=== PATIENT | male | born 1960 | race Caucasian/White ===

== ENCOUNTER → 2016-08-24 | Outpatient (CLI) | payer BC ==
--- NOTE | 2016-08-25 19:43 | DI ---
LEFT FOOT, 08/24/2016 12:10 PM: Clinical History: Left foot pain. Previous Exam: None at this facility. 3 weightbearing views are submitted. There is no acute soft tissue, osseous, or joint abnormality. Andrew ne densities are present at the tip of the medial malleolus consistent with previous injury to the de ltoid ligament. There is an os trigonum. Bony spurs are present at the attachment of the Achilles ten don and the plantar fascia to the calcaneus. Reading: There are bone spurs at the attachment of the plantar fascia and Achilles tendon to the calcaneus.
== END ==
LOC: RAD 13:05
PROVIDERS: ATTEND Orthopaedic Surgery
DX: M79.672 Pain in left foot (principal); M77.32 Calcaneal spur, left foot
CPT/HCPCS: 73630

== ENCOUNTER 2017-02-06 17:44 | Inpatient (IN) ==
[2017-02-06] MEDS ORDERED: KETOROLAC 15 MG/1 ML VIAL IVP ONE (17:54)
[2017-02-06] MEDS ORDERED: ONDANSETRON 4 MG/2 ML VIAL IVP ONE (17:54)
[2017-02-06] MEDS ORDERED: Sodium Chloride 0.9% 1,000 ML PRIMARY IV ONE ×2 (17:54→21:58)
[2017-02-06] MEDS ORDERED: MORPHINE SULFATE 4 MG/1 ML IVP ONE ×2 (17:54→20:15)
--- NOTE | 2017-02-06 18:05 | PDOC ---
Abdomen/Flank HPI - General Chief Complaint: Abdomen Pain Stated Complaint: ABDOMINAL PAIN Date Seen by Provider: 02/06/17 Time Seen by Provider: 17:50 Source: POSITIVE: Patient, Spouse Exam Limitations: POSITIVE: No limitations Nurse's Notes Reviewed & Considered: Yes - History of Present Illness Initial Comments: This is a pleasant well-developed well-nourished 56-year-old male complaining of right upper quadrant and epigastric abdominal pain. Patient was in his normal state of health last night prior to consuming a hot dog at the ball game. He subsequently developed right upper quadrant and epigastric pain with nausea but no vomiting. He denies any headache, no sore throat, no fever chills or sweats, he does have nausea but no vomiting and no diarrhea. He denies any ataxia, no hematuria or dysuria. He does have some mild complaints of myalgias but denies any arthralgias. He has a mild cough but no shortness of breath and no chest pain. Body Location Affected: REPORTS: Abdomen Timing: REPORTS: Abrupt Duration: >24 hours Severity: Severe Quality: REPORTS: Cramping, "Pain", Throbbing Abdominal Pain Onset Location: REPORTS: RUQ, Epigastric Abdominal Pain Radiation: REPORTS: No radiation Context: REPORTS: Bad Food Modifying Factors: improves with: Nothing Associated Symptoms: REPORTS: Nausea Similar Symptoms Previously: No Recent Care Received: REPORTS: Denies Any Prior Injuries Related to Current Complaint?: No - Patient Home Medications Home Medications: Home Medications Ibuprofen 200 mg PO PRN 09/13/12 Albuterol/Ipratrop Neb Soln [Duoneb Neb Soln] 1 vial INH ONCE #1 04/10/16 Methylprednisolone [Medrol] 4 mg PO TAD #21 box 04/10/16 - Patient Allergies Allergies/Adverse Reactions: Allergies 3 Allergy/AdvReac Type Severity Reaction Status Date / Time oxycodone HCl [From Percocet] Allergy Intermediate SHORTNESS Verified 02/06/17 17:51 OF BREATH Penicillins Allergy Intermediate HIVES Verified 02/06/17 17:51 Past Medical History - heen HEENT History: Denies History Cardiovascular History: Denies History Respiratory History: Asthma, Snoring Additional Respiratory History: ACTIVITY INDUCED ASTHMA Gastrointestinal History: GERD Genitourinary History: Kidney Stones Additional Genitourinary History: HAS PASSED A COUPLE KIDNEY STONES. STATES THE LAST ONE WAS THE FIRST PART OF SUMMER. Endocrine History: Denies History Musculoskeletal History: Arthritis, Back Pain, Joint Pain Prosthesis or Implant: No Neurological History: Motion Sickness Blood Disorders: Denies History Psychiatric History: Denies History History of Sexually Transmitted Diseases: No Cancer History: Denies History History of MDRO: No History of Other Communicable Diseases: No Alcohol Use: None In the Past 12 Months, Have Used or Abuse Any Substance: None Previous Surgical History: Yes Type / Date of Surgery: BACK SX L4-5 (CLEAN UP) X 2/ CIRCUMCISION/ EGD Anesthesia Reactions: Yes (PONV/ LOW O2 AFTER PRIOR SX'S) Malignant Hyperthermia: No Significant Family History: Hypertension ROS - Limitations ROS Limitations: No Limitations Constitution: REPORTS: Denies Symptoms Cardiovascular: REPORTS: Denies Cardiac Symptoms Respiratory: REPORTS: Cough Non Productive Neurological: REPORTS: Denies Neuro Symptoms Gastrointestinal: REPORTS: Abdominal Pain, Nausea Endocrine: REPORTS: Denies Symptoms Musculoskeletal: REPORTS: Muscle Aches Genitourinary: REPORTS: Denies Symptoms Eyes: REPORTS: Denies Symptoms ENT: REPORTS: Denies Symptoms Skin: REPORTS: Denies Skin Symptoms Lympathic: REPORTS: Denies Lympathic Symptoms Immunologic: POSITIVE: Denies Symptoms Psychiatric: POSITIVE: Denies Psych Symptoms Abdominal/Flank Pain PE - General Appearance General Appearance: POSITIVE: Alert, Cooperative, No Evidence of Trauma, Moderate Distress - HEENT HEENT: POSITIVE: Head Inspection Nml, Eyes Inspection Nml, Ears Inspection Nml, Nose Inspection Nml, Oral/Dental Inspect. Nml, Pharynx Inspect. Nml, PERRL, EOMI - Neck Neck: POSITIVE: Normal Inspection, No Apparent Injury - Respiratory Respiratory: POSITIVE: No Respiratory Distress, Breath Sounds Normal, Chest Non- Tender - Cardiovascular Cardiovascular: POSITIVE: Regular Rate and Rhythm, Heart Sounds Normal, Strong Pulses Peripheral Pulses: Radial (L): 4+ - Chest Chest: POSITIVE: Non Tender - Abdomen Abdomen: Soft: (All Quadrants), Normal Bowel Sounds: (All Quadrants), Denies Tenderness: (RLQ), (LLQ), No Splenomegaly: (All Quadrants), No Hepatomegaly: ( All Quadrants), No Guarding: (RLQ), (LLQ), No Rebound: (All Quadrants), No Palpable Pulse: (All Quadrants), No Palpabale Mass: (All Quadrants), No Rigidity : (All Quadrants), Tenderness Noted: (RUQ), (LUQ), Distention: (All Quadrants), Guarding: (RUQ) - Back Back: POSITIVE: Normal Inspection - Skin Skin: POSITIVE: Intact, Normal For Race, Warm, Dry, No Rash - Extremities Extremity: Non-Tender: (All Extremities), Normal ROM: (All Extremities), Normal Inspection: (All Extremities), Pelvis Stable: (All Extremities) - Neurological Neurological: POSITIVE: Affect Apporpriate, Oriented X3, Motor Normal, Sensation Normal - Psychological Psychiatric: POSITIVE: Affect Appropriate, Mood Appropriate Abdomen Progress - Results Reviewed by me Xrays/CTs/US Reviewed by me: Yes Discussed with Radiologist: Yes Lab Results Reviewed by Me: Yes CBC and BMP: 02/06/17 18:23 02/06/17 18:23 - Patient's Progress Pain Medication Addressed: POSITIVE: Yes Re-examine Time: 21:46 Status: POSITIVE: Improved MDM / ED Course: The patient was examined, an IV started, blood drawn and sent to the lab for studies, radiographic examinations were obtained. Findings: CBC shows elevation of his white count to 14. Comprehensive metabolic panel is unremarkable. Amylase is elevated over 300. Lipase is 1714. CT scan of his abdomen shows no acute intra-abdominal abnormalities. Ultrasound, per my interpretation, shows increased echogenicity of pancreas, normal gallbladder, common bile duct was unobserved. Assessment: Acute pancreatitis. Plan: Admission, nothing by mouth, pain medication, possible surgical consultation - Consult Consult (If Yes, Name of Consulting MD & Time Called): Yes (Dr. Mitchell, 2130 hrs) Consulting MD will see pt:: POSITIVE: [facility] [place] Admit Counseled: POSITIVE: Patient, Family, RE: Lab Results, RE: Radiology Results, RE : DX Patient Care Time - Estimated PCT Patient Care Time (In Minutes): 45 Vital Signs - VS Reviewed Vital Signs Reviewed: Yes Discharge Clinical Impression: Abdominal pain, Pancreatitis Discharge Disposition: Admit to Inpatient Condition: Stable Patient Instructions Given at Discharge: Pancreatitis (ED) Follow Up With: SAMY REAL [Primary Care Provider] - Date Decision to Admit to Inpatient: 02/06/17 Time Decision to Admit to Inpatient: 21:49
[2017-02-06 18:27] LABS: BASOPHILS # (AUTO) 0.03 10*3/UL; BASOPHILS % (AUTO) 0.2 % (0-1); EOSINOPHILS # (AUTO) 0.38 10*3/UL; EOSINOPHILS % (AUTO) 2.6 % (0-8); Hematocrit [HCT] 49.5 % (42.0-52.0); Hemoglobin [HGB] 16.2 g/dL (14.0-18.0); MEAN CORPUSCULAR HEMOGLOBIN 30.5 PG (27-31); MEAN CORPUSCULAR HGB CONC 32.7 g/dL (33-37); MEAN PLATELET VOLUME 10.2 FL (7.4-12.2); MONOCYTES # (AUTO) 1.39 10*3/UL (0.3-0.8); MONOCYTES % (AUTO) 9.6 % (5-15); NEUTROPHILS # (AUTO) 11.18 10*3/UL; NEUTROPHILS % (AUTO) 77.1 % (50-80); RED BLOOD COUNT 5.32 10^6/uL (4.70-6.10)
[2017-02-06 18:28] LABS: PLATELET MORPHOLOGY COMMENT NORMAL MORPHOLOGY (NORM); RBC MORPHOLOGY COMMENT NORMAL MORPHOLOGY (NORM); WBC MORPHOLOGY COMMENT NORMAL MORPHOLOGY (NORM)
[2017-02-06 18:38] LABS: BLOOD UREA NITROGEN 11 mg/dL (7-22); BUN/CREATININE RATIO 18.33 (6-20); SERUM ALBUMIN 4.2 g/dL (3.5-4.8)
--- NOTE | 2017-02-06 19:26 | DI ---
CT Abdomen/Pelvis W Contrast,02/06/2017 5:54 PM: Clinical History: Right upper quadrant pain. Previous Exam: None at this facility. Findings: Multiple helically acquired CT images are obtained through the abdomen and pelvis following intraveno us administration of contrast. The appendix is normal. There is a small fat-containing umbilical hernia. There is no free fluid with in the deep pelvis. The urinary bladder is unremarkable. The spleen, pancreas, adrenals, kidneys and gallbladder are unremarkable. There is diffuse fatty infiltration of the liver. Degenerative changes are seen of the spine. There is some facet arthropathy noted. The anterior abdominal wall and subcutaneous fat is unremarkable. Impression: No acute intra-abdominal pathology.
[2017-02-06 19:57] LABS: BILIRUBIN,URINE NEGATIVE (NEG); CLARITY,URINE CLEAR (CLEAR); COLOR,URINE YELLOW (Y); GLUCOSE, URINE (UA) NEGATIVE (NEG); OCCULT BLOOD,URINE NEGATIVE (NEG); PH,URINE 5.5 (5.0-8.5); PROTEIN,URINE NEGATIVE (NEG); URINE SAMPLE TYPE VOIDED SPECIMEN
[2017-02-06] MEDS ORDERED: MORPHINE SULFATE 4 MG/1 ML ONE (20:17)
--- NOTE | 2017-02-06 21:28 | DI ---
EXAM: US Abdomen Complete CLINICAL HISTORY: Physician Notes: FOCUS ON [email or web address].Tech Comments: TECHNIQUE: Real-time ultrasound of the abdomen (complete) with image documentation. COMPARISON: No relevant prior studies available. FINDINGS: Limitations: Examination is limited due to patient body habitus. Liver: The liver demonstrates diffuse increased echogenicity, consistent with steatosis. No intrahepatic bile duct dilation. Gallbladder: Gallbladder demonstrates physiologic distention. No wall thickening. No visualized stones. Common bile duct: Common bile duct not definitively visualized. Pancreas: Very limited evaluation of the pancreas. A portion of the pancreatic head as visualized, with an increased echogenicity likely indicating fatty infiltration. Kidneys: Right kidney difficult to characterize, though size is grossly normal at 13 cm. No obvious hydronephrosis. Aorta: Aorta not visualized. Inferior vena cava: Unremarkable. IMPRESSION: 1. Hepatic steatosis. There is also likely fatty infiltration of the pancreas, though limitedly characterized. 2. Gallbladder sonographically unremarkable. Common bile duct not visualized.
--- NOTE | 2017-02-06 22:33 | PDOC ---
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 Yesterday after consuming a hot dog at a baseball game he subsequently developed the some epigastric and left lower quadrant pain with nausea no vomiting pain wasn't resolving and decided to come to the ER for further evaluation and treatment. CT scan of his abdomen and pelvis revealed no acute abnormalities ultrasound of his gallbladder and pancreas were undetermined because of body habitus. His lipase and amylase were elevated and diagnosed with pancreatitis most likely not from alcohol because he does not drink no scorpion bites no medications that could cause this I will check triglycerides and tomorrow we will order an MRI of his abdomen to make sure there is no gallstones patient understands and agrees Past Medical History Medical History: Asthma Tobacco Use: Never Smoker In the Past 12 Months, Have Used or Abuse Any of the Following Substance: None Medication / Allergies Home Medications: Home Medications Medication Instructions Recorded Confirmed Type Ibuprofen 200 mg PO PRN 09/13/12 10/08/12 History Albuterol/Ipratrop Neb Soln 1 vial INH ONCE #1 04/10/16 02/06/17 Rx [Duoneb Neb Soln] Fluticasone/Salmeterol [Advair #1 #1 Samples 04/10/16 Sample Hfa] Sample Methylprednisolone [Medrol] 4 mg PO TAD #21 box 04/10/16 02/06/17 Rx Allergies/Adverse Reactions: Allergies 3 Allergy/AdvReac Type Severity Reaction Status Date / Time oxycodone HCl [From Percocet] Allergy Intermediate SHORTNESS Verified 02/06/17 17:51 OF BREATH Penicillins Allergy Intermediate HIVES Verified 02/06/17 17:51 Review of Systems - Review of Systems All Systems: Reviewed & No Additional Complaints Except as Stated - Respiratory Respiratory: DENIES: Negative System Review, Cough, Sputum, Dyspnea At Rest, Dyspnea with Exertion, Pleuritic Pain, Hemoptysis, Wheezing, Other, See HPI - Cardiovascular Cardiovascular: DENIES: Negative System Review, Chest Pain, Edema, Syncope, Palpitations, Orthopnea, Paroxysmal Nocturnal Dyspnea, Other, See HPI - Genitourinary Genitourinary: DENIES: Negative System Review, Pain, Burning, Hematuria, Incontinence, Urgency, Hesitant Stream, Decreased Stream, Nocutria, Discharge, Sexual Dysfunction, Other, See HPI - Neurological Neurologic: DENIES: Negative System Review, Headache, Numbness/Paresthesia, Tremors, Weakness, Seizures, Head Trauma, LOC, Dizziness, Confusion, Memory Loss , Difficulty Walking, Incoordination, Other, See HPI - Psychiatric Psychiatric: DENIES: Negative System Review, Anxiety, Depressed, Anhedonia, Hopelessness, Hospitalization, Panic, Sadness, Suicidality, Tearfullness, Other , See HPI Exam - Vitals Vital Signs: Vital Signs Temperature 98.8 F Temperature Source Temporal Artery Scan Pulse Rate [Pulse Oximeter] 79 Respiratory Rate 20 Blood Pressure [Left Arm] 140/90 Pulse Ox 91 Oxygen Delivery Method Room Air Height 6 ft Weight 310 lb - General General Appearance: No Acute Distress, Cooperative - Head Head Exam: Normal Inspection, Normocephalic, Atraumatic - Eye Eye Exam: POSITIVE: Normal Appearance, PERRL, EOMI, No Scleral Icterus - ENT ENT Exam: POSITIVE: Normal Exam, Normal External Ear Exam, Normal Oropharynx, TM 's Normal Bilaterally, Mucous Membranes Moist - Neck Neck Exam: Normal Inspection, Full ROM, No Tenderness, No Lymphadenopathy, No Thyromegaly, JVP is not Raised - Respiratory Respiratory Exam: POSITIVE: Clear to Auscultation - Bilaterally, Breathing Non Labored, Normal To Percussion, Normal to Percussion and Palpation - Cardiovascular Cardiovascular Exam: POSITIVE: RRR, No Murmur, No Clicks, No Gallops, No Rubs, PMI Non-Displaced - GI/Abdominal GI/Abdominal Exam: NEGATIVE: Guarding, No Masses, Rebound Additional GI/Abdominal Exam Details: Epigastric pain on deep palpation and left lower quadrant pain - Extremities Extremities Exam: POSITIVE: Normal Inspection, Full ROM, Normal Capillary Refill , No Clubbing Present, No Edema Present, No Cyanosis Present, Negative Clarice's sign, Dosalis Pedis Pulses - Stong & Regular - Neurological Neurological Exam: POSITIVE: Alert, Oriented x 3, Reflexes Normal, Normal Gait, CN II-XII Intact, No Facial Droop, Speech Intact / Clear, Moves All Extremities Equally, No Fasciculations, No Clonus Results - Labs CBC and BMP: 02/06/17 18:23 02/06/17 18:23 Assessment and Plan - Patient Problems (1) Abdominal pain Current Visit: Yes Status: Acute Comment: Most likely secondary to pancreatitis etiology unknown we'll order MRI of the abdomen make sure there is no gallstones or common bile duct the or any other abnormality for now IV fluids and pain control we'll repeat labs in a.m. Code(s): R10.9 - Unspecified abdominal pain (2) Pancreatitis Current Visit: Yes Status: Acute Code(s): K85.90 - Acute pancreatitis without necrosis or infection, unspecified
[2017-02-06] MEDS ORDERED: NORMAL SALINE 10 ML SYRINGE FLUSH IVP PRN (22:53)
[2017-02-06] MEDS ORDERED: LIDOCAINE W/ SODIUM BICARB 0.5 ML SYR SUBD PRN (22:53)
[2017-02-06] MEDS ORDERED: ONDANSETRON 4 MG/2 ML VIAL IVP PRN (22:53)
[2017-02-06] MEDS: Sodium Chloride 0.9% 1,000 ML PRIMARY IV SCH (23:00)
[2017-02-06] MEDS: HEPARIN 5000 UNIT/1 ML SUBCUT SCH (23:55)
[2017-02-06] MEDS: MORPHINE SULFATE 2 MG/1 ML IVP PRN (23:57)
[2017-02-07] MEDS: IPRATROPIUM/ALBUTEROL SULFATE 3 ML NEB NEB SCH (01:01)
[2017-02-07] MEDS: MORPHINE SULFATE 2 MG/1 ML IVP PRN (03:54)
[2017-02-07 05:16] LABS: BASOPHILS # (AUTO) 0.02 10*3/UL; BASOPHILS % (AUTO) 0.2 % (0-1); EOSINOPHILS # (AUTO) 0.47 10*3/UL; EOSINOPHILS % (AUTO) 4.1 % (0-8); Hematocrit [HCT] 45.3 % (42.0-52.0); Hemoglobin [HGB] 14.6 g/dL (14.0-18.0); LYMPHOCYTES # (AUTO) 1.22 10*3/uL; MEAN CORPUSCULAR HEMOGLOBIN 30.7 PG (27-31); MEAN CORPUSCULAR HGB CONC 32.2 g/dL (33-37); MEAN CORPUSCULAR VOLUME 95.2 FL (80-90); MEAN PLATELET VOLUME 10.6 FL (7.4-12.2); MONOCYTES # (AUTO) 1.29 10*3/UL (0.3-0.8); MONOCYTES % (AUTO) 11.2 % (5-15); NEUTROPHILS # (AUTO) 8.47 10*3/UL; NEUTROPHILS % (AUTO) 73.7 % (50-80); RED BLOOD COUNT 4.76 10^6/uL (4.70-6.10)
[2017-02-07 05:27] LABS: BLOOD UREA NITROGEN 13 mg/dL (7-22); BUN/CREATININE RATIO 21.66 (6-20); LIPASE 749 IU/L (23-300); SERUM ALBUMIN 3.5 g/dL (3.5-4.8)
[2017-02-07 05:39] LABS: PLATELET MORPHOLOGY COMMENT NORMAL MORPHOLOGY (NORM); RBC MORPHOLOGY COMMENT NORMAL MORPHOLOGY (NORM); WBC MORPHOLOGY COMMENT NORMAL MORPHOLOGY (NORM)
[2017-02-07] MEDS: HEPARIN 5000 UNIT/1 ML SUBCUT SCH ×2 (07:24→17:07)
[2017-02-07] MEDS: Sodium Chloride 0.9% 1,000 ML PRIMARY IV SCH ×3 (08:39→22:22)
--- NOTE | 2017-02-07 08:52 | DI ---
MRI Abdomen WO Contrast,02/07/2017 7:00 AM: Clinical History: Pancreatitis Previous Exam: CT abdomen pelvis performed February 06, 2017 Findings: Multiplanar MR images are obtained through the abdomen following an MRCP protocol, and demonstrate a simple cyst within the superior segment of the right lobe of the liver. The gallbladder is unremarkable. The pancreas, spleen, adrenals and kidneys are unremarkable. The left and right common hepatic ducts are unremarkable. The cystic duct and the common bile duct are unremarkable. The pancreatic duct is also within normal limits. There is no evidence of filling defect. Impression: Normal MRCP.
[2017-02-07 09:53] LABS: CHOL/HDL RATIO 5.28 RATIO (0-4.0)
--- NOTE | 2017-02-07 11:12 | PDOC(PROG) ---
Interval History: Patient is doing much better pain garcia no nausea no vomiting did not take his morphine this morning Objective : Data - Labs CBC and BMP: 02/07/17 04:17 02/07/17 04:17 Objective : Exam - General General Appearance: Cooperative - Respiratory Respiratory Exam: Clear to Auscultation - Bilaterally, Breathing Non Labored, Normal To Percussion, Normal to Percussion and Palpation - Cardiovascular Cardiovascular Exam: RRR, No Murmur, No Clicks, No Gallops, No Rubs, PMI Non- Displaced - GI/Abdominal Additional GI/Abdominal Exam Details: Very mild epigastric pain on deep palpation otherwise much improved since yesterday - Extremities Extremities Exam: No Clubbing Present, No Edema Present, No Cyanosis Present Assessment and Plan - Patient Problems (1) Abdominal pain Current Visit: Yes Status: Acute Comment: Secondary to pancreatitis etiology unknown MRI of his abdomen within normal limits no common bile duct the of intraductal dilatation did show fatty infiltration of the liver and the pancreas most likely all related to obesity counseled the patient on a low-carb diet and trying to limit and an sodas and other high ischemic index foods I will check a hemoglobin A1c. Code(s): R10.9 - Unspecified abdominal pain (2) Pancreatitis Current Visit: Yes Status: Acute Comment: Improved lipase to 700 continue nothing by mouth IV fluids repeat lipase in a.m. if within normal limits and pain resolved we'll start feeding in a.m. Code(s): K85.90 - Acute pancreatitis without necrosis or infection, unspecified
[2017-02-07] MEDS ORDERED: Acetaminophen 1000mg Inj 1,000 MG/100 ML VIAL IV ONE (11:39)
[2017-02-07] MEDS ORDERED: KETOROLAC 15 MG/1 ML VIAL IVP PRN (11:40)
[2017-02-07] MEDS ORDERED: HYDROmorphone 2 MG/1 ML IVP PRN (16:42)
[2017-02-07] MEDS ORDERED: Promethazine Tab 25 MG TAB PO PRN (21:28)
[2017-02-07] MEDS ORDERED: Acetaminophen 1000mg Inj 1,000 MG/100 ML VIAL IV PRN (21:36)
[2017-02-08] MEDS: HEPARIN 5000 UNIT/1 ML SUBCUT SCH ×2 (01:58→09:55)
[2017-02-08] MEDS: IPRATROPIUM/ALBUTEROL SULFATE 3 ML NEB NEB SCH (01:58)
[2017-02-08] MEDS: Sodium Chloride 0.9% 1,000 ML PRIMARY IV SCH (04:28)
[2017-02-08 08:47] VITALS: RESP 18; O2SAT 92
[2017-02-08 08:55] LABS: BASOPHILS # (AUTO) 0.02 10*3/UL; BASOPHILS % (AUTO) 0.2 % (0-1); EOSINOPHILS # (AUTO) 0.38 10*3/UL; EOSINOPHILS % (AUTO) 4.4 % (0-8); Hematocrit [HCT] 45.7 % (42.0-52.0); Hemoglobin [HGB] 14.5 g/dL (14.0-18.0); LYMPHOCYTES # (AUTO) 1.23 10*3/uL; MEAN CORPUSCULAR HEMOGLOBIN 30.4 PG (27-31); MEAN CORPUSCULAR HGB CONC 31.7 g/dL (33-37); MEAN CORPUSCULAR VOLUME 95.8 FL (80-90); MEAN PLATELET VOLUME 10.3 FL (7.4-12.2); MONOCYTES # (AUTO) 0.82 10*3/UL (0.3-0.8); MONOCYTES % (AUTO) 9.4 % (5-15); NEUTROPHILS # (AUTO) 6.23 10*3/UL; NEUTROPHILS % (AUTO) 71.7 % (50-80); RED BLOOD COUNT 4.77 10^6/uL (4.70-6.10)
[2017-02-08 08:56] LABS: PLATELET MORPHOLOGY COMMENT NORMAL MORPHOLOGY (NORM); RBC MORPHOLOGY COMMENT NORMAL MORPHOLOGY (NORM); WBC MORPHOLOGY COMMENT NORMAL MORPHOLOGY (NORM)
[2017-02-08 09:47] LABS: HEMOGLOBIN A1C 6.74 % (4.2-6.0)
--- NOTE | 2017-02-08 12:39 | DCSUMMARY ---
Hospitalization Summary Hospital Course: Final Discharge Diagnosis: Current Visit Problems Problem Status Onset Code Abdominal pain Acute R10.9 Pancreatitis Acute K85.90 Diagnostic Data, Laboratory Data, and Procedures of Signifigance: Laboratory Results 02/08/17 02/08/17 02/08/17 Range/Units 08:45 08:45 09:24 WBC 8.69 (4.8-10.8) 10^3/uL RBC 4.77 (4.70-6.10) 10^6/uL Hgb 14.5 (14.0-18.0) g/dL Hct 45.7 (42.0-52.0) % MCV 95.8 H (80-90) FL MCH 30.4 (27-31) PG MCHC 31.7 L (33-37) g/dL RDW Std Deviation 46.9 (39-50) fL RDW Coeff of Rob 13.5 (11.5-14.5) % Plt Count 219 (140-350) 10*3/uL MPV 10.3 (7.4-12.2) FL Immature Gran % (Auto) 0.1 (0-5) % Neut % (Auto) 71.7 (50-80) % Lymph % (Auto) 14.2 (10-50) % Steele % (Auto) 9.4 (5-15) % Eos % (Auto) 4.4 (0-8) % Baso % (Auto) 0.2 (0-1) % Immature Gran # (Auto) 0.01 10*3/UL Neut # (Auto) 6.23 10*3/UL Lymph # (Auto) 1.23 10*3/uL Steele # (Auto) 0.82 H (0.3-0.8) 10*3/UL Eos # (Auto) 0.38 10*3/UL Baso # (Auto) 0.02 10*3/UL WBC Morphology Comment Normal morphology (NORM) Plt Morphology Comment Normal morphology (NORM) RBC Morph Comment Normal morphology (NORM) Mean Blood Glucose 138.442 mg/dL Hemoglobin A1c 6.74 H (4.2-6.0) % Lipase 174 (23-300) IU/L History and Physical pertinent to Admission: Course of Hospitalization: This very nice 56-year-old gentleman with the medical history significant for obesity comes to the hospital because of abdominal pain patient's lipase amylase were elevated and diagnosed with pancreatitis patient was admitted to the hospital Nothing by mouth IV fluids and pain control was initiated we have total resolution of his amylase lipase and pain this morning CT scan of the abdomen and pelvis showed no acute findings ultrasound showed no acute findings and MRI of his pancreas showed no acute findings. Triglycerides were within normal limits most likely fatty infiltration of pancreas and the liver from obesity I've counseled patient on weight loss recommended nutrition consult consult as well recommended low carbs and to discuss this further with his primary care physician considering his hemoglobin A1c is 6.74 he is well on his way to developing diabetes he said he would not like any medication at this point in time and will like to discuss it with his primary care physician first and to try some lifestyle changes I said I will is good with that on agreement. He will be discharged home if he tolerates his clear liquid and lunch On the date of discharge, the patient was examined: Gen.: No acute distress, alert, nontoxic Heart: Regular rate and rhythm, no murmurs, clicks, gallops, or rubs Lungs: Clear to auscultation bilaterally, breathing is nonlabored Abdomen/GI: Normal tones on auscultation, soft, nontender, nondistended Musculoskeletal/extremities: No clubbing, cyanosis, or edema Vitals reviewed and are listed below Vital Signs (24 hrs) Temp Pulse Pulse Resp BP Pulse Ox 02/08/17 08:46 98.2 F 79 18 136/74 92 02/08/17 02:22 95 02/08/17 01:00 97 16 143/85 91 02/07/17 20:09 97.3 F 82 16 121/68 91 02/07/17 19:00 80 82 16 02/07/17 17:00 98.8 F 77 20 119/68 90 02/07/17 13:00 97.6 F 88 20 124/64 88 Assessment and Plan: 1. As per discharge assessments above 2. Disposition: Home 3. Condition on discharge, stable and improved. 4. Diet: Low-carb 5. Activities: resume normal activities 6. Follow-Up: 1. PCP 2. 7. Medications at the Time of Discharge: Home Medications Medication Instructions Recorded Confirmed Type Albuterol/Ipratrop Neb Soln 1 vial INH ONCE #1 03/06/17 01/02/18 Rx [Duoneb Neb Soln] Fluticasone/Salmeterol [Advair #1 #1 Samples 04/10/16 Sample Hfa] Sample 3 Generic Name Dose Route Start Last Admin Trade Name Freq PRN Reason Stop Dose Admin Albuterol/Ipratropium 3 ml 02/06/17 22:53 02/08/17 01:58 Duoneb Neb Soln NEB Not Given ONCE CRISTOFER Heparin Sodium (Porcine) 5,000 unit 02/06/17 22:53 02/08/17 09:55 Heparin Inj SUBCUT 5,000 unit Q8H CRISTOFER Administration Hydromorphone HCl 1 mg 02/07/17 16:42 02/07/17 17:34 Dilaudid Inj IVP 1 mg Q2H PRN Administration Pain Sodium Chloride 1,000 mls @ 75 mls/hr 02/07/17 00:15 02/08/17 04:28 Normal Saline PRIMARY IV 75 mls/hr .[id number] CRISTOFER Administration Acetaminophen 1,000 mg in 100 mls @ 400 mls/hr 02/07/17 21:36 02/08/17 01:09 Ofirmev 1000mg Inj IV 400 mls/hr ONCE PRN Administration Headache Ketorolac Tromethamine 15 mg 02/07/17 11:40 02/07/17 13:17 Toradol Inj IVP 15 mg Q6H PRN Administration Pain Lidocaine HCl 0.5 ml 02/06/17 22:53 Lidocaine Buffered Inj SUBD ONCE PRN IV Starts Ondansetron HCl 4 mg 02/06/17 22:53 Zofran Inj IVP Q6H PRN NAUSEA / VOMITING Promethazine HCl 25 mg 02/07/17 21:28 02/08/17 01:09 Phenergan PO 25 mg Q6H PRN Administration NAUSEA Sodium Chloride 5 - 20 ml 02/06/17 22:53 Saline Flush IVP BID PRN Flush Active Medications Generic Name Dose Route Start Last Admin Trade Name Fredenzel PRN Reason Stop Dose Admin Albuterol/Ipratropium 3 ml 02/06/17 22:53 02/08/17 01:58 Duoneb Neb Soln NEB Not Given ONCE CRISTOFER Heparin Sodium (Porcine) 5,000 unit 02/06/17 22:53 02/08/17 09:55 Heparin Inj SUBCUT 5,000 unit Q8H CRISTOFER Administration Hydromorphone HCl 1 mg 02/07/17 16:42 02/07/17 17:34 Dilaudid Inj IVP 1 mg Q2H PRN Administration Pain Sodium Chloride 1,000 mls @ 75 mls/hr 02/07/17 00:15 02/08/17 04:28 Normal Saline PRIMARY IV 75 mls/hr .[id number] CRISTOFER Administration Acetaminophen 1,000 mg in 100 mls @ 400 mls/hr 02/07/17 21:36 02/08/17 01:09 Ofirmev 1000mg Inj IV 400 mls/hr ONCE PRN Administration Headache Ketorolac Tromethamine 15 mg 02/07/17 11:40 02/07/17 13:17 Toradol Inj IVP 15 mg Q6H PRN Administration Pain Lidocaine HCl 0.5 ml 02/06/17 22:53 Lidocaine Buffered Inj SUBD ONCE PRN IV Starts Ondansetron HCl 4 mg 02/06/17 22:53 Zofran Inj IVP Q6H PRN NAUSEA / VOMITING Promethazine HCl 25 mg 02/07/17 21:28 02/08/17 01:09 Phenergan PO 25 mg Q6H PRN Administration NAUSEA Sodium Chloride 5 - 20 ml 02/06/17 22:53 Saline Flush IVP BID PRN Flush 8. Time, care, counseling and coordination of care for this discharge is greater than [address] [facility] [place] [id number] PH: DD: [phone] FAX: [phone] ~DIAGNOSTIC IMAGING REPORT~ Patient: ABBI SYED : 1960 Sex: M Age: 56 Exam Name: MRI Abdomen WO Contrast Exam Date: 02/07/17 Report # : [id number] CPT Code: 75774 EMR/MR #: [id number] Ordering: DERRICK KENNY Admiting: DERRICK KENNY MD. Primary: Sharon Kerns PA-C Attending: DERRICK KENNY MD. Signed MRI Abdomen WO Contrast,02/07/2017 7:00 AM: Clinical History: Pancreatitis Previous Exam: CT abdomen pelvis performed February 06, 2017 Findings: Multiplanar MR images are obtained through the abdomen following an MRCP protocol, and demonstrate a simple cyst within the superior segment of the right lobe of the liver. The gallbladder is unremarkable. The pancreas, spleen, adrenals and kidneys are unremarkable. The left and right common hepatic ducts are unremarkable. The cystic duct and the common bile duct are unremarkable. The pancreatic duct is also within normal limits. There is no evidence of filling defect. Impression: Normal MRCP. Dictated By: 02/07/17 0844 SURESH GRIMES MD. Signed By: [address] [facility] [place] [address] PH: DD: [phone] FAX: [phone] ~DIAGNOSTIC IMAGING REPORT~ Patient: ABBI SYED : 1960 Sex: M Age: 56 Exam Name: CT Abdomen/Pelvis W Contrast Exam Date: 02/06/17 Report # : [id number] CPT Code: 35356 EMR/MR #: [id number] Ordering: Abilio Felipe Admiting: Primary: Sharon Kerns PA-C Attending: Signed CT Abdomen/Pelvis W Contrast,02/06/2017 5:54 PM: Clinical History: Right upper quadrant pain. Previous Exam: None at this facility. Findings: Multiple helically acquired CT images are obtained through the abdomen and pelvis following intravenous administration of contrast. The appendix is normal. There is a small fat-containing umbilical hernia. There is no free fluid within the deep pelvis. The urinary bladder is unremarkable. The spleen, pancreas, adrenals, kidneys and gallbladder are unremarkable. There is diffuse fatty infiltration of the liver. Degenerative changes are seen of the spine. There is some facet arthropathy noted. The anterior abdominal wall and subcutaneous fat is unremarkable. Impression: No acute intra-abdominal pathology. Dictated By: [facility] [place] [address] PH: DD: [phone] FAX: [phone] ~DIAGNOSTIC IMAGING REPORT~ Patient: ABBI SYED : 1960 Sex: M Age: 56 Exam Name: US Abdomen Limited Exam Date: 02/06/17 Report # : [id number] CPT Code: 81505 EMR/MR #: [id number] Ordering: Abilio Felipe Admiting: Primary: Sharon Kerns PA-C Attending: Signed EXAM: US Abdomen Complete CLINICAL HISTORY: Physician Notes: FOCUS ON [email or web address].Tech Comments: TECHNIQUE: Real-time ultrasound of the abdomen (complete) with image documentation. COMPARISON: No relevant prior studies available. FINDINGS: Limitations: Examination is limited due to patient body habitus. Liver: The liver demonstrates diffuse increased echogenicity, consistent with steatosis. No intrahepatic bile duct dilation. Gallbladder: Gallbladder demonstrates physiologic distention. No wall thickening. No visualized stones. Common bile duct: Common bile duct not definitively visualized. Pancreas: Very limited evaluation of the pancreas. A portion of the pancreatic head as visualized, with an increased echogenicity likely indicating fatty infiltration. Kidneys: Right kidney difficult to characterize, though size is grossly normal at 13 cm. No obvious hydronephrosis. Aorta: Aorta not visualized. Inferior vena cava: Unremarkable. IMPRESSION: 1. Hepatic steatosis. There is also likely fatty infiltration of the pancreas, though limitedly characterized. 2. Gallbladder sonographically unremarkable. Common bile duct not visualized. Dictated By: Vijay Pérez MD. Signed By: 02/06/172127 Vijay Pérez MD. 02/06/171919 SURESH GRIMES MD. Signed By: 02/06/17 1926 SURESH GRIMES MD. 02/07/17 0852 SURESH GRIMES MD. Exam - Vitals Vital Signs: Vital Signs Temperature 98.2 F Temperature Source Temporal Artery Scan Pulse Rate [Apical] 80 Pulse Rate [Pulse Oximeter] 79 Pulse Rate 72 Respiratory Rate 18 Blood Pressure [Left Arm] 136/74 Blood Pressure 124/88 Pulse Ox 92 Oxygen Flow Rate 2 Oxygen Delivery Method Room Air Height 5 ft 11 in Weight 310 lb 9.6 oz Patient Problems - Patient Problem List (1) Abdominal pain Current Visit: Yes Status: Acute Code(s): R10.9 - Unspecified abdominal pain Category: Medical (2) Pancreatitis Current Visit: Yes Status: Acute Code(s): K85.90 - Acute pancreatitis without necrosis or infection, unspecified Category: Medical
[2017-02-08 16:54] VITALS: BP 124/73; TEMP 97.2
== END 2017-02-08 17:10 | disposition home or self-care (01) | DRG 440 ==
LOC: ER 17:44 → MED/SURG 22:08
PROVIDERS: ADMIT Internal Medicine; ATTEND Internal Medicine